=== PATIENT | female | born 1975 | race Caucasian/White ===

== ENCOUNTER 2018-03-13 19:08 | Emergency (ER) | payer OTHER ==
[2018-03-13 19:21] VITALS: BP 142/82
[2018-03-13] MEDS ORDERED: ACETAMINOPHEN 325 MG TABLET PO ONE (19:42)
--- NOTE | 2018-03-13 19:42 | RADIOLOGY REPORT (SQ) ---
EXAM DESCRIPTION: HAND RIGHT 3 VIEWS COMPLETED DATE/TIME: 03/13/2018 7:32 pm REASON FOR STUDY: Pain s/p injury COMPARISON: None. EXAM PARAMETERS: NUMBER OF VIEWS: Three views. TECHNIQUE: AP, lateral and oblique radiographic images acquired of the right hand. LIMITATIONS: None. FINDINGS: MINERALIZATION: Normal. BONES: No acute fracture or dislocation. No worrisome bone lesions. JOINTS: No effusions. SOFT TISSUES: No soft tissue swelling. No foreign body. OTHER: No other significant finding. IMPRESSION: NEGATIVE STUDY OF THE RIGHT HAND. NO RADIOGRAPHIC EVIDENCE OF ACUTE INJURY. TECHNICAL DOCUMENTATION: JOB ID: [id number] [employer]- All Rights Reserved Reading location - IP/workstation name: [email or web address]
--- NOTE | 2018-03-13 19:59 | ER Document Report ---
ED Hand/Wrist Injury - General Chief Complaint: Hand Injury Stated Complaint: R HAND INJURY Time Seen by Provider: 03/13/18 19:28 Mode of Arrival: Ambulatory Information source: Patient TRAVEL OUTSIDE OF THE [place] IN LAST 30 DAYS: No - HPI Patient complains to provider of: right hand injury Notes: Patient is here with complaints of right hand injury. She states she was at [facility] yesterday when the cart carrying all of her thing she had bought started to move in the parking lot. She attempted to stop the cart and her hand got pinned between a pole and the cart. Immunizations are up-to-date. She has a few skin abrasions to the hand. She is complaining of pain to the right hand. No numbness, tingling, weakness. No fever. No chest pain or shortness of breath. Rash. No nausea, vomiting, diarrhea. Pain is worse with movement, better with rest. No other complaints at this time. - Related Data Allergies/Adverse Reactions: No Known Allergies Allergy (Verified 07/24/15 08:28) Past Medical History - Social History Smoking Status: Never Smoker Family History: Reviewed & Not Pertinent Patient has suicidal ideation: No Patient has homicidal ideation: No - Past Medical History Cardiac Medical History: Denies: Hx Heart Attack, Hx Hypertension Pulmonary Medical History: Denies: Hx Asthma Neurological Medical History: Denies: Hx Cerebrovascular Accident, Hx Seizures Renal/ Medical History: Denies: Hx Peritoneal Dialysis GI Medical History: Denies: Hx Hepatitis, Hx Hiatal Hernia, Hx Ulcer Psychiatric Medical History: Reports: Hx Anxiety Infectious Medical History: Denies: Hx Hepatitis Past Surgical History: Reports: Hx Cholecystectomy, Hx Orthopedic Surgery - left knee, left foot, Hx Tubal Ligation. Denies: Hx Hysterectomy, Hx Mastectomy , Hx Open Heart Surgery, Hx Pacemaker - Immunizations Hx Diphtheria, Pertussis, Tetanus Vaccination: Yes Review of Systems - Review of Systems -: Yes All other systems reviewed and negative Physical Exam - Vital signs Vitals: Temp Pulse Resp BP Pulse Ox 98.3 F 91 17 142/82 H 100 03/13/18 19:20 03/13/18 19:20 03/13/18 19:20 03/13/18 19:20 03/13/18 19:20 - Notes Notes: GENERAL: alert, cooperative, nontoxic, no distress. HEAD: normocephalic, atraumatic EYES: conjunctiva pink without discharge, no external redness or swelling. EARS: no external swelling, no external redness NOSE: atraumatic, no external swelling MOUTH/THROAT: mucous membranes moist and pink NECK: soft, supple, full range of motion, no meningismus. CHEST: no distress, lungs clear and equal throughout. No wheezing, rales, rhonchi. CARDIAC: regular rate and rhythm, no murmur, normal capillary refill, normal pulses. BACK: full range of motion, no CVA tenderness. EXTREMITIES: full range of motion of all extremities. No redness, no swelling. Few superficial abrasions to the dorsum of the right hand. No redness or drainage. Tenderness across the dorsum of the hand over the third, fourth, fifth carpals. No deformity. No swelling. No redness. Normal cap refill and sensation. Normal pulse. NEURO: alert and oriented 3, no focal deficits, full range of motion of all extremities. PYSCH: appropriate mood, affect. Patient is cooperative. SKIN: pink, warm, dry, no rash. Course - Re-evaluation Re-evalutation: 03/13/18 19:57 Patient is nontoxic appearing with stable vitals. Patient had her hand pinned between her shopping cart and a pull at [employer] yesterday. She is a few superficial abrasions that do not appear infected. Immunizations up-to-date. X -rays of the right hand show no fracture infection. Patient suffered a minor hand contusion. The patient will be discharged home with a prescription for Voltaren. Instructions to rest, ice, elevate her injury. Follow-up if not better in 1 week, sooner for worsening pain, fever, numbness, tingling, weakness , redness, any further concerns. The patient is noted to have elevated blood pressure during today's emergency department visit. The patient was informed of this finding. The patient was instructed that this may be related to pre-hypertension and requires further evaluation with a primary care provider. The patient has no hypertensive symptoms at this time. The patient's emergency department workup and current diagnosis were explained to the patient and or family. Follow-up instructions were provided. Medications if prescribed were discussed. Instructions for when to return to the emergency department including specific worrisome symptoms were discussed with the patient and/or family. - Vital Signs Vital signs: Temp Pulse Resp BP Pulse Ox 98.3 F 91 17 142/82 H 100 03/13/18 19:20 03/13/18 19:20 03/13/18 19:20 03/13/18 19:20 03/13/18 19:20 - Diagnostic Test Radiology reviewed: Image reviewed, Reports reviewed - X-ray right hand negative Discharge - Discharge Clinical Impression: Contusion of right hand Qualifiers: Encounter type: initial encounter Qualified Code(s): S60.221A - Contusion of right hand, initial encounter Condition: Stable Disposition: HOME, SELF-CARE Instructions: Contusion ([facility]) Additional Instructions: Take medications as prescribed. You may also take Tylenol as needed for pain. Rest, ice, elevate your hand. Follow-up if not better in 1 week, sooner for worsening pain, fever, redness, numbness, tingling, weakness, any further concerns. Your blood pressure was elevated during today's visit. Have this rechecked with your doctor. Prescriptions: Diclofenac Sodium [Voltaren 50 Mg Tablet.] 50 mg PO BID #20 tablet.dr Forms: Elevated Blood Pressure, Smoking Cessation Education Referrals: SANA BENTON MD [Primary Care Provider] - Follow up as needed
== END 2018-03-13 20:02 | disposition home or self-care (01) ==
LOC: ER 19:08
DX: S60.221A Contusion of right hand, initial encounter (principal); W23.1XXA Caught, crushed, jammed, or pinched between stationary objects, initial encounter; Y92.481 Parking lot as the place of occurrence of the external cause; Z90.49 Acquired absence of other specified parts of digestive tract; Z98.51 Tubal ligation status
CPT/HCPCS: 99283

== ENCOUNTER 2018-08-01 17:51 | Emergency (ER) | payer OTHER ==
[2018-08-01] MEDS ORDERED: MORPHINE SULFATE 10 MG/ML INJ IM ONE (19:00)
--- NOTE | 2018-08-01 19:02 | ER Document Report ---
ED Medical Screen (RME) - General Chief Complaint: Back Pain Stated Complaint: BACK PAIN Time Seen by Provider: 08/01/18 18:58 Mode of Arrival: Ambulatory Information source: Patient Notes: 43-year-old female presents with complaint of low back pain that started just prior to arrival while at work. She denies any recent injury, falls. She does admit to hematuria. She does have a previous history of kidney stones. I have greeted and performed a rapid initial assessment of this patient. A comprehensive ED assessment and evaluation of the patient, analysis of test results and completion of medical decision making process we will be contacted by additional ED providers. General; appears to be in significant pain Musculoskeletal; no midline tenderness. Abdomen; right CVA tenderness. TRAVEL OUTSIDE OF THE [place] IN LAST 30 DAYS: No - HPI Onset: Just prior to arrival Onset/Duration: Sudden Quality of pain: Throbbing Severity: Moderate Associated Symptoms: denies: Fever Exacerbated by: Denies Relieved by: Denies Similar symptoms previously: Yes Recently seen / treated by doctor: No - Related Data Smoking: Cigarettes Frequency of alcohol use: Occasional Drug Abuse: None Allergies/Adverse Reactions: No Known Allergies Allergy (Verified 08/01/18 17:51) Past Medical History - Past Medical History Cardiac Medical History: Denies: Hx Heart Attack, Hx Hypertension Pulmonary Medical History: Denies: Hx Asthma Neurological Medical History: Denies: Hx Cerebrovascular Accident, Hx Seizures Renal/ Medical History: Denies: Hx Peritoneal Dialysis GI Medical History: Denies: Hx Hepatitis, Hx Hiatal Hernia, Hx Ulcer Psychiatric Medical History: Reports: Hx Anxiety Infectious Medical History: Denies: Hx Hepatitis Past Surgical History: Reports: Hx Cholecystectomy, Hx Orthopedic Surgery - left knee, left foot, Hx Tubal Ligation. Denies: Hx Hysterectomy, Hx Mastectomy , Hx Open Heart Surgery, Hx Pacemaker - Immunizations Hx Diphtheria, Pertussis, Tetanus Vaccination: Yes Physical Exam - Vital signs Vitals: Temp Pulse Resp BP Pulse Ox 97.9 F 102 H 20 148/97 H 99 08/01/18 17:55 08/01/18 17:55 08/01/18 17:55 08/01/18 17:55 08/01/18 17:55 Course - Vital Signs Vital signs: Temp Pulse Resp BP Pulse Ox 97.9 F 102 H 20 148/97 H 99 08/01/18 17:55 08/01/18 17:55 08/01/18 17:55 08/01/18 17:55 08/01/18 17:55 Doctor's Discharge - Discharge Referrals: SANA BENTON MD [Primary Care Provider] - Follow up as needed
[2018-08-01 20:08] LABS: APPEARANCE,URINE SLIGHTLY-CLOUDY; BILIRUBIN,URINE MODERATE (NEGATIVE); CALCIUM OXALATE CRYSTALS,URINE FEW /HPF; COLOR,URINE AMBER; GLUCOSE, URINE NEGATIVE (NEGATIVE); KETONES,URINE TRACE mg/dL (NEGATIVE); LEUKOCYTE ESTERASE,URINE NEGATIVE (NEGATIVE); NITRITE,URINE NEGATIVE (NEGATIVE); PROTEIN,URINE 100 mg/dL (NEGATIVE)
[2018-08-01 20:27] LABS: ANION GAP 11 (5-19); BLOOD UREA NITROGEN 22 mg/dL (7-20); CALCIUM 9.6 mg/dL (8.4-10.2); CARBON DIOXIDE 19 mmol/L (22-30); CHLORIDE 106 mmol/L (98-107); GLUCOSE 98 mg/dL (75-110); SODIUM 136.4 mmol/L (137-145)
[2018-08-01] MEDS ORDERED: KETOROLAC TROMETHAMINE INJ/PF 30 MG/1 ML SDV IV ONE (20:38)
[2018-08-01] MEDS ORDERED: HYDROMORPHONE HCL INJ/PF 2 MG/ML AMPULE IV ONE ×2 (20:38→22:05)
[2018-08-01 21:59] LABS: ABSOLUTE EOSINOPHILS # (AUTO) 0.1 10^3/uL (0.0-0.6); ABSOLUTE LYMPHOCYTES (AUTO) 2.7 10^3/uL (0.5-4.7); ABSOLUTE MONOCYTES (AUTO) 1.6 10^3/uL (0.1-1.4); ABSOLUTE NEUT (AUTO) 9.6 10^3/uL (1.7-8.2); BASOPHILS % (AUTO) 0.3 % (0-2); EOSINOPHILS % (AUTO) 0.6 % (0-6); HEMATOCRIT 41.1 % (36.0-47.0); LYMPHOCYTES % (AUTO) 19.5 % (13-45); MEAN CORPUSCULAR HEMOGLOBIN 32.7 pg (27.0-33.4); MEAN CORPUSCULAR HGB CONC 34.1 g/dL (32.0-36.0); MEAN CORPUSCULAR VOLUME 96 fl (80-97); MONOCYTES % (AUTO) 11.1 % (3-13); PLATELET COUNT 376 10^3/uL (150-450); RED BLOOD COUNT 4.29 10^6/uL (3.72-5.28); RED CELL DISTRIBUTION WIDTH 13.4 % (11.5-14.0); SEGMENTED NEUTROPHILS % (AUTO) 68.5 % (42-78); TOTAL CELLS COUNTED % (AUTO) 100 %; WHITE BLOOD COUNT 14.1 10^3/uL (4.0-10.5)
[2018-08-01] MEDS ORDERED: NORMAL SALINE 1000 ML 1,000 ML IV ONE (22:12)
[2018-08-01] MEDS ORDERED: HYDROMORPHONE HCL INJ/PF 2 MG/ML AMPULE ONE (22:17)
--- NOTE | 2018-08-01 23:12 | RADIOLOGY REPORT (SQ) ---
EXAM DESCRIPTION: CT ABDOMEN PELVIS WITH IV CONTRAST COMPLETED DATE/TME: 08/01/2018 22:16 CLINICAL HISTORY: 43 years Female, bilateral flank pain Comparison: 08/15/2017, 09/27/2016, report only. Technique: IV contrast. Coronal and sagittal reformat. This exam was performed according to our departmental dose-optimization program, which includes automated exposure control, adjustment of the mA and/or kV according to patient size and/or use of iterative reconstruction technique. [facility]: Dose Right [facility]: CareDose [facility]: Dose Right [facility]: Teradose 4D [facility]: FiFully LIMITATIONS: None Findings: 2.2 cm left adrenal adenoma. No ascites. No pneumoperitoneum. Cholecystectomy. No evidence of appendicitis. Normal appendix. Basilar atelectasis/scar. Degenerative disc disease. Inferior thorax, liver, gallbladder, pancreas, spleen, adrenals, renal system, gastrointestinal tract, pelvic organs, lymphatics, vasculature, and musculoskeleton appear otherwise unremarkable. IMPRESSION: No acute findings.
--- NOTE | 2018-08-01 23:46 | ER Document Report ---
ED General - General Chief Complaint: Back Pain Stated Complaint: BACK PAIN Time Seen by Provider: 08/01/18 18:58 Mode of Arrival: Ambulatory Notes: Patient presents with chief complaint of sudden onset low back pain that started a few hours prior to arrival. Patient reports the pain started on her right lumbar area and radiated down and hurt to her right flank and right groin. Patient now reports the pain is bilateral low back pain that radiates into both flanks and down into the low abdomen bilaterally. Patient denies any nausea, vomiting or diarrhea. Patient denies any dysuria. Patient reports the pain feels worse than child labor. Patient has had kidney stones in the past states this does not feel anything like that. Patient denies any previous illness TRAVEL OUTSIDE OF THE [place] IN LAST 30 DAYS: No - Related Data Allergies/Adverse Reactions: No Known Allergies Allergy (Verified 08/01/18 17:51) Past Medical History - General Information source: Patient - Social History Smoking Status: Current Some Day Smoker Frequency of alcohol use: Occasional Drug Abuse: None Family History: Reviewed & Not Pertinent Patient has suicidal ideation: No Patient has homicidal ideation: No - Past Medical History Cardiac Medical History: Denies: Hx Heart Attack, Hx Hypertension Pulmonary Medical History: Denies: Hx Asthma Neurological Medical History: Denies: Hx Cerebrovascular Accident, Hx Seizures Renal/ Medical History: Denies: Hx Peritoneal Dialysis GI Medical History: Denies: Hx Hepatitis, Hx Hiatal Hernia, Hx Ulcer Psychiatric Medical History: Reports: Hx Anxiety Infectious Medical History: Denies: Hx Hepatitis Past Surgical History: Reports: Hx Cholecystectomy, Hx Orthopedic Surgery - left knee, left foot, Hx Tubal Ligation. Denies: Hx Hysterectomy, Hx Mastectomy , Hx Open Heart Surgery, Hx Pacemaker - Immunizations Hx Diphtheria, Pertussis, Tetanus Vaccination: Yes Review of Systems - Review of Systems Gastrointestinal: See HPI Musculoskeletal: See HPI -: Yes All other systems reviewed and negative Physical Exam - Vital signs Vitals: Temp Pulse Resp BP Pulse Ox 97.9 F 102 H 20 148/97 H 99 08/01/18 17:55 08/01/18 17:55 08/01/18 17:55 08/01/18 17:55 08/01/18 17:55 - Notes Notes: PHYSICAL EXAMINATION: GENERAL: Well-appearing, well-nourished and in moderate distress HEAD: Atraumatic, normocephalic. EYES: Pupils equal round and reactive to light, extraocular movements intact, conjunctiva are normal. ENT: Nares patent, oropharynx clear without exudates. Moist mucous membranes. NECK: Normal range of motion, supple without lymphadenopathy LUNGS: Breath sounds clear to auscultation bilaterally and equal. No wheezes rales or rhonchi. HEART: Regular rate and rhythm without murmurs ABDOMEN: Soft, nontender, nondistended abdomen. No guarding, no rebound. No masses appreciated. Female : No CVA tenderness. Musculoskeletal: Normal range of motion, no pitting or edema. No cyanosis. Tenderness to palpation to paraspinous muscles bilaterally. NEUROLOGICAL: Cranial nerves grossly intact. Normal speech, steady gait. Normal sensory, motor exams. Normal rectal tone. PSYCH: Normal mood, normal affect. SKIN: Warm, Dry, normal turgor, no rashes or lesions noted. Course - Re-evaluation Re-evalutation: Patient was given multiple rounds of medication with minimal relief of her pain. CT abdomen pelvis was negative for any acute findings. Patient does have a nonspecific elevated white count and mildly elevated liver enzymes. Dr. Du was brought to the bedside to evaluate the patient. It appears likely that patient's pain is originating from her back as imaging (CT abdomen pelvis with IV contrast) is negative and physical examination is more supportive of a musculoskeletal strain. Patient has good rectal tone, denies any fever, denies loss of any bowel or bladder. Voiding without difficulty. Patient did ambulate back and forth several times to the restroom with out difficulty. Patient will be discharged home with a prescription for muscle relaxers, patient will have close follow-up with her primary care provider for possible MRI if her pain does not resolve over the next several days. - Vital Signs Vital signs: Temp Pulse Resp BP Pulse Ox 98.1 F 86 20 147/92 H 100 08/02/18 02:01 08/02/18 02:01 08/02/18 02:01 08/02/18 02:01 08/02/18 02:01 - Laboratory Result Diagrams: 08/01/18 19:35 08/01/18 19:35 Laboratory results interpreted by me: 08/01/18 08/01/18 08/01/18 19:35 19:35 19:35 WBC 14.1 H Absolute Neutrophils 9.6 H Absolute Monocytes 1.6 H Sodium 136.4 L Carbon Dioxide 19 L BUN 22 H Direct Bilirubin AST ALT Lipase Urine Protein 100 H Urine Ketones TRACE H Urine Blood SMALL H Urine Bilirubin MODERATE H Urine Urobilinogen 4.0 H 08/01/18 08/01/18 19:35 19:35 WBC Absolute Neutrophils Absolute Monocytes Sodium Carbon Dioxide BUN Direct Bilirubin 0.7 H AST 566 H ALT 280 H Lipase 367.0 H Urine Protein Urine Ketones Urine Blood Urine Bilirubin Urine Urobilinogen Discharge - Discharge Condition: Stable Disposition: HOME, SELF-CARE Additional Instructions: LOW BACK PAIN: Three out of every four people will have an episode of disabling back pain during their lifetime. Most commonly the pain is due to straining of the muscles and ligaments in the low back. Usual treatment includes: (1) Rest on a firm surface. Avoid lying on your stomach. (2) Ice pack the painful area. After a few days, gentle heat may be used intermittently to relax the area, or ice packs can be continued. (3) Medication may be needed -- muscle relaxers and antiinflammatory medicines are commonly used. (4) As the back improves, exercises are prescribed to strengthen the back and abdominal muscles. Your doctor will advise you on the proper care for your back at each stage in your recovery. You may be better in a few days -- or healing may take several weeks. If new symptoms of a "herniated disc" (radiation of pain, numbness, or tingling down the back of the leg or weakness in the leg) occur, you should be re-examined. Further testing may be necessary. PAIN MEDICATION INJECTION: You have received an injection of a pain medication. You should experience significant pain relief within 45 minutes. If this injection was a narcotic -- it will impair your judgement, slow your reaction time and make you sleepy (as well as relieve your pain). Narcotics also can cause nausea. You should not drive, work with machinery, or perform any task requiring mental alertness until all effects of the medication are gone -- six to eight hours. Do not take any alcohol, or sedatives, and do not take any other medication without checking with your physician. MUSCLE RELAXERS: Muscle relaxing medications are usually prescribed for acute muscle spasm or injury to the neck and back. They are often combined with antiinflammatory pain medication for increased relief. You may stop the muscle relaxer when the pain and stiffness have improved. Start the medication again if spasms recur. Muscle relaxers may cause drowsiness, especially with the first dose. Do not operate machinery or drive while under the effects of the medication. Most muscle relaxers last up to 24 hours. Do not combine the medication with alcohol. ICE PACKS: Apply ice packs frequently against the painful area. Many different schedules are recommended, such as "20 minutes on, 20 minutes off" or "one hour ice, two hours rest." If you need to work, you may need to go longer between ice treatments. You should plan to have the area ice packed AT LEAST one fourth of the time. The ice should be applied over the wrap, tape, or splint, or over a layer of cloth -- not directly against the skin. Some ice bags have a built-in cloth and can be put directly on the skin. WARM PACKS: After approximately two days, apply gentle heat (such as a heating pad or hot water bottle) for about 20 to 30 minutes about every two hours -- at least four times daily. Warmth and elevation will help you make a more rapid recovery , and will ease the pain considerably. Do not use HOT heat, and never apply heat for longer than 30 minutes. The continuous heat can invisibly damage skin and muscles -- even when no burn is seen on the surface. Damaged muscles can make you MORE sore. FOLLOW-UP CARE: If you have been referred to a physician for follow-up care, call the physician s office for an appointment as you were instructed or within the next two days. If you experience worsening or a significant change in your symptoms, notify the physician immediately or return to the Emergency Department at any time for re-evaluation. Please call your primary care provider, Dr. Benton's office this morning to schedule an appointment. Your liver enzymes were elevated today. Other than that your blood work, urinalysis and imaging did not show anything life- threatening. Please take all medications as prescribed. Use the directions above for ice/heat alternations. Please return to the emergency department immediately if you develop worsening pain, fever, loss of bowel or bladder, numbness or tingling or any other symptom that is concerning to you. Prescriptions: Cyclobenzaprine HCl [Flexeril 10 mg Tablet] 10 mg PO TIDP PRN #20 tab PRN Reason: Muscle Spasms Diclofenac Sodium [Voltaren] 4 gm TP TID PRN #100 gel..gram. PRN Reason: Lidocaine [Lidoderm 5% (700 mg) Transdermal Patch] 1 patch TP DAILY #30 adh..patch Forms: Special Work Note, Treatment of Relative/Child Referrals: SANA BENTON MD [Primary Care Provider] - Follow up as needed
[2018-08-02 00:20] LABS: ALANINE AMINOTRANSFERASE 280 U/L (9-52); ALBUMIN 4.4 g/dL (3.5-5.0); ALKALINE PHOSPHATASE 93 U/L (38-126); ASPARTATE AMINO TRANSFERASE 566 U/L (14-36); BILIRUBIN,DIRECT 0.7 mg/dL (0.0-0.4); BILIRUBIN,TOTAL 0.7 mg/dL (0.2-1.3); TOTAL PROTEIN 7.4 g/dL (6.3-8.2)
[2018-08-02] MEDS ORDERED: DIAZEPAM INJ 10 MG/2 ML DISP.SYRIN IV ONE (00:24)
[2018-08-02] MEDS ORDERED: LIDOCAINE 5% (700 MG) TRANSDERMAL ADH..PATCH TP ONE (01:14)
[2018-08-02] MEDS ORDERED: DEXAMETHASONE SOD PHOS INJ 10 MG/1 ML VIAL IM ONE (01:48)
[2018-08-02] MEDS ORDERED: MORPHINE SULFATE IR 15 MG TABLET PO ONE (01:50)
[2018-08-02 02:05] VITALS: BP 147/92
== END 2018-08-02 02:15 | disposition home or self-care (01) ==
LOC: ER 17:51
DX: M54.5 Low back pain (principal); R10.30 Lower abdominal pain, unspecified; F17.200 Nicotine dependence, unspecified, uncomplicated; Z90.49 Acquired absence of other specified parts of digestive tract; Z98.51 Tubal ligation status
CPT/HCPCS: 96376; 99284; 96372; 96361; 96374; 96375; 36415; 83690; 85025; 81025; 80076; 80048; 81001; 74177; J3360; J1885; J2270; J1170; J1100

== ENCOUNTER → 2018-09-11 | Outpatient (CLI) | payer OTHER ==
--- NOTE | 2018-09-11 10:51 | RADIOLOGY REPORT (SQ) ---
EXAM DESCRIPTION: MRI LUMBAR SPINE WITHOUT COMPLETED DATE/TIME: 09/11/2018 9:00 am REASON FOR STUDY: OTHER INTERVERTEBRAL DISC DEGENERATION, LUMBAR REGION M51.36 OTHER INTERVERTEBRAL DISC DEGENERATION, LUMBAR REGION COMPARISON: None. TECHNIQUE: Sagittal and Axial imaging includes T1, T2, STIR and gradient echo sequences. Coronal T2/ HASTE imaging. LIMITATIONS: None. FINDINGS: VISUALIZED UPPER ABDOMEN: Limited evaluation. No acute or suspicious findings suggested. SEGMENTATION: No transitional anatomy. The lowest well-developed disc space is labeled L5-S1. ALIGNMENT: Anatomic. VERTEBRAE: Intact. BONE MARROW: Normal. No marrow replacement or reactive changes. DISC SIGNAL: Desiccation L1-2. POSTERIOR ELEMENTS: Generally intact. No pars defect evident. HARDWARE: None in the spine. CORD AND CONUS: Normal in size and signal intensity. Conus at the appropriate level. SOFT TISSUES: No aortic aneurysm seen. No bulky retroperitoneal adenopathy or mass. No paraspinal mas s or fluid. L1-L2: Disc space narrowing. Bulging disc with minimal narrowing of the spinal canal. Mild neural f oraminal narrowing bilaterally. L2-L3: No significant spinal stenosis or exit foraminal stenosis. L3-L4: No significant spinal stenosis or exit foraminal stenosis. L4-L5: Facet arthropathy. No significant stenosis. L5-S1: Facet arthropathy. No significant stenosis. LOWER THORACIC: Incompletely imaged. No stenosis seen. SACRUM: Visualized upper sacrum intact. OTHER: No other significant findings. IMPRESSION: Facet arthropathy. Bulging disc at L1- 2. TECHNICAL DOCUMENTATION: JOB ID: [id number] [employer]- All Rights Reserved Reading location - IP/workstation name: [email or web address]
== END ==
LOC: RAD 08:16
PROVIDERS: ATTEND Family Medicine
DX: M51.36 Other intervertebral disc degeneration, lumbar region (principal)
CPT/HCPCS: 72148